=== PATIENT | female | born 1975 | race African-American/Black ===

== ENCOUNTER 2023-08-09 15:44 | Outpatient (CLI) | payer MEDICARE, SELFPAY ==
[2023-08-09 16:13] LABS: Basophils Absolute Auto 0.1 K/mm3 (0.0-0.1); Basophils Percent Auto 0.9 % (0.2-1.2); Eosinophils Absolute Auto 0.2 K/mm3 (0-0.3); Hematocrit 25.1 % (37.0-47.0); Immature Granulocyte Absolute 0.02 K/mm3 (0.00-0.031); Immature Granulocyte Percent A 0.2 % (0-0.5); Lymphocytes Absolute Auto 2.86 K/mm3 (0.9-3.2); Lymphocytes Percent Auto 33.5 % (18.3-44.2); Mean Corpuscular HGB Conc 27.1 g/dl (32-36); Mean Corpuscular Hemoglobin 17.6 pg (26-34); Mean Corpuscular Volume 64.9 fl (80-100); Mean Platelet Volume 8.2 fl (7.4-10.4); Monocytes Absolute Auto 0.6 K/mm3 (0.1-0.6); Monocytes Percent Auto 7.2 % (2.6-8.5); Neutrophils Absolute Auto 4.8 K/mm3 (1.3-6.7); Neutrophils Percent Auto 56.2 % (45.5-73.1); Nucleated Red Blood Cells Perc 0.2 % (0.0-0.2); Platelet Count Result 861 k/mm3 (150-375); Red Blood Count 3.87 M/mm3 (4.2-5.4); Red Cell Distribution Width 30.2 % (11.5-14.5); White Blood Count 8.5 K/mm3 (4.5-10.0)
[2023-08-09 16:14] LABS: Hemoglobin 6.8 g/dL (12.0-15.0)
[2023-08-09 16:31] LABS: Platelet Estimate Increased (Adequate)
[2023-08-09 16:32] LABS: Anisocytosis 1+ (NORMAL); Hypochromasia 2+ (NORMAL); Ovalocytes 2+ (NORMAL); Poikilocytosis 2+ (NORMAL); Schistocytes None Seen (NORMAL)
[2023-08-09 16:48] LABS: Iron 21 ug/dL (37-170)
[2023-08-09 16:50] LABS: Alanine Aminotransferase 21 U/L (6-35); Alkaline Phosphatase 77 U/L (38-126); Anion Gap 3 mmol/L (8-16); Aspartate Amino Transferase 35 U/L (14-36); Bilirubin,Total 0.4 mg/dL (0.2-1.3); Blood Urea Nitrogen 8 mg/dL (7-17); Calcium 8.8 mg/dL (8.4-10.2); Carbon Dioxide 30 mmol/L (22-30); Chloride 106 mmol/L (98-107); Estimated Glomerular Filt Rate > 60; Glucose 122 mg/dL (65-110); Potassium 3.7 mmol/L (3.4-5.0); Sodium 139 mmol/L (137-145)
[2023-08-09 16:58] LABS: Percent Iron Saturation 4 % (20-50)
[2023-08-09 17:24] LABS: Ferritin 4.47 ng/mL (6.24-137)
[2023-08-09 17:56] LABS: Folic Acid 5.9 ng/mL (2.76->20)
[2023-08-13 10:20] LABS: Methylmalonic Acid 185 nmol/L (87-318)
== END 2023-08-09 15:45 | disposition home or self-care (01) ==
LOC: ANHLAB 15:57
PROVIDERS: Visit Provider Internal Medicine Hematology & Oncology
DX: D64.9 Anemia, unspecified (principal)
CPT/HCPCS: 36415; 80053; 82607; 82728; 82746; 83540; 83550; 83921; 85025

== ENCOUNTER 2023-08-10 07:42 | Outpatient (RCR) | payer MEDICARE, SELFPAY ==
[2023-08-10] VITALS (10 sets, daily range): BP systolic 113–141; BP diastolic 65–85; PULSE 77–93; RESP 14–24; TEMP 36.6–37.3; O2SAT 97–99
[2023-08-10] MEDS: ACETAMINOPHEN 325 MG TABLET 650 MG PO (09:19)
[2023-08-10] MEDS: diphenhydrAMINE HCl CAP 25 MG CAPSULE PO (09:20)
[2023-08-10] MEDS: SODIUM CHLORIDE 0.9% IV 250 ML 30 ML IV CONT (09:20)
--- NOTE | 2023-08-10 12:08 | PC.NURSE ---
this rn called into room. pt reported slight pressure to chest that worsened with deep breathing and sob. vitals taken stable at this time. lungs clear at this time. rate of prbc infusion decreased from 125 to 100. pt observed for 10 min pt ambulated to bathroom with no incidence but continued to c/o of the slight pressure and pain to quan arms. pt requested to decrease rate down more rate decreased to 90ml/hr. pt reported noted improvement after 5 min on slower rate. infusion continued at rate of 90ml/hr. vss at this time. will monitor pt.
[2023-08-10] MEDS: FUROSEMIDE INJ 40 MG/4 ML VIAL 20 MG IV PUSH (12:59)
== END 2023-11-08 23:59 | disposition home or self-care (01) ==
LOC: ANHCPCTRAN 07:42
PROVIDERS: Visit Provider Internal Medicine Hematology & Oncology
DX: D64.9 Anemia, unspecified (principal)
CPT/HCPCS: 36415; 36430; 86850; 86900; 86901; 86923; 96374; A9270; J1940; J7050; P9016

== ENCOUNTER 2023-08-22 13:43 | Outpatient (CLI) | payer MEDICARE, SELFPAY ==
[2023-08-22 14:12] LABS: Basophils Absolute Auto 0.1 K/mm3 (0.0-0.1); Basophils Percent Auto 0.8 % (0.2-1.2); Eosinophils Absolute Auto 0.3 K/mm3 (0-0.3); Eosinophils Percent Auto 4.5 % (0-4.4); Hematocrit 31.8 % (37.0-47.0); Hemoglobin 9.3 g/dL (12.0-15.0); Immature Granulocyte Absolute 0.01 K/mm3 (0.00-0.031); Immature Granulocyte Percent A 0.2 % (0-0.5); Immature Platelet Fraction Pct 7.9 % (0.9-11.2); Lymphocytes Absolute Auto 2.57 K/mm3 (0.9-3.2); Lymphocytes Percent Auto 39.5 % (18.3-44.2); Mean Corpuscular HGB Conc 29.2 g/dl (32-36); Mean Corpuscular Volume 68.2 fl (80-100); Monocytes Absolute Auto 0.4 K/mm3 (0.1-0.6); Monocytes Percent Auto 5.5 % (2.6-8.5); Neutrophils Absolute Auto 3.2 K/mm3 (1.3-6.7); Neutrophils Percent Auto 49.5 % (45.5-73.1); Red Blood Count 4.66 M/mm3 (4.2-5.4); White Blood Count 6.5 K/mm3 (4.5-10.0)
[2023-08-22 14:16] LABS: Platelet Count Result 44 k/mm3 (150-375)
[2023-08-22 14:20] LABS: Hypochromasia 2+ (NORMAL); Platelet Estimate Decreased (Adequate); Schistocytes None Seen (NORMAL)
[2023-08-22 14:21] LABS: Anisocytosis 1+ (NORMAL); Microcytosis 1+ (NORMAL); Ovalocytes 1+ (NORMAL); Poikilocytosis 1+ (NORMAL)
[2023-08-22 16:44] LABS: Iron 86 ug/dL (37-170)
[2023-08-22 16:49] LABS: Alanine Aminotransferase 27 U/L (6-35); Albumin Level 4.3 g/dL (3.5-5.1); Alkaline Phosphatase 78 U/L (38-126); Anion Gap 3 mmol/L (8-16); Aspartate Amino Transferase 35 U/L (14-36); Bilirubin,Total 0.5 mg/dL (0.2-1.3); Blood Urea Nitrogen 5 mg/dL (7-17); Calcium 9.2 mg/dL (8.4-10.2); Carbon Dioxide 29 mmol/L (22-30); Chloride 103 mmol/L (98-107); Estimated Glomerular Filt Rate > 60; Glucose 174 mg/dL (65-110); Potassium 3.2 mmol/L (3.4-5.0); Sodium 135 mmol/L (137-145)
[2023-08-22 16:53] LABS: Percent Iron Saturation 18 % (20-50)
[2023-08-22 17:54] LABS: Folic Acid 10.5 ng/mL (2.76->20)
[2023-08-26 07:08] LABS: Methylmalonic Acid 118 nmol/L (87-318)
== END 2023-08-22 13:44 | disposition home or self-care (01) ==
LOC: ANHLAB 13:45
PROVIDERS: Visit Provider Internal Medicine Hematology & Oncology
DX: D64.9 Anemia, unspecified (principal)
CPT/HCPCS: 36415; 80053; 82607; 82728; 82746; 83540; 83550; 83921; 85025; 85055

== ENCOUNTER 2023-08-28 15:32 | Outpatient (CLI) | payer MEDICARE, SELFPAY ==
--- NOTE | ~2023-08-28 | CT_ITS ---
EXAMINATION: CTA chest DATE: 08/28/2023 16:29 INDICATION: Chest pain TECHNIQUE: Computed tomography (CT) of the chest was performed without and subsequently with 100 CC O mnipaque 350 intravenous contrast. Automated exposure control and iterative reconstruction technique were employed. Exam dose: 1859.71 mGy-cm total exam DLP. COMPARISON: None FINDINGS: Heterogeneous enlarged left lobe of thyroid gland, including an approximately 2 cm upper po le soft tissue mass. Consider elective thyroid ultrasound examination. No thoracic aortic aneurysm or dissection. Normal heart size. No pericardial or pleural effusion. No evidence of pulmonary embolism is detected. No hilar or mediastinal mass lesion or lymphadenopathy. There are a few areas of mild discoid atelectasis or scarring in the middle and right lower lobes and to a lesser extent left lower lobe, with minimal lower lobe dependent atelectasis, greater on the ri ght. No pulmonary consolidation or suspicious pulmonary mass lesion.. Normal morphology of the adrenal glands. Postoperative change of the stomach likely related to gastric bypass.. No suspicious osteolytic or osteoblastic lesions are noted. IMPRESSION: No thoracic aortic aneurysm or dissection or pulmonary embolism is detected Heterogeneous thyroid gland with one or more masses; consider atelectasis thyroid ultrasound examinat ion Reviewed, dictated and finalized at [facility]. Reviewed, dictated and finalized at location [facility]. IMPRESSION: No thoracic aortic aneurysm or dissection or pulmonary embolism is detected Heterogeneous thyroid gland with one or more masses; consider atelectasis thyro id ultrasound examination
== END 2023-08-28 15:33 | disposition home or self-care (01) ==
PROVIDERS: PCP Family Medicine; Visit Provider Internal Medicine Hematology & Oncology
DX: R07.9 Chest pain, unspecified (principal)
CPT/HCPCS: 71275; Q9967

== ENCOUNTER → 2023-10-17 13:03 | Outpatient (CLI) | payer MEDICARE, SELFPAY ==
--- NOTE | ~2023-10-17 | US_ITS ---
US thyroid INDICATION: Thyroid nodule TECHNIQUE: Real-time sonographic images of the thyroid gland were obtained. COMPARISON: No prior studies for comparison. FINDINGS: The right thyroid lobe measures 6.4 x 2.2 x 2.9 cm. The left thyroid lobe measures 6.1 x 2 .7 x 3.2 cm. In the left lobe there is a solid height wider than tall, smoothly marginated mass witho ut internal echogenic foci measuring 2.7 x 1.8 x 2.3 cm, TR 3. A second left thyroid mass measures 2 x 1.8 x 1.3 cm and is solid, hyperechoic, wider than tall without echogenic foci and smooth marginati on is, TR 3. IMPRESSION: 1. Enlarged thyroid gland with left thyroid masses, largest measuring 2.7 cm, TR3 3. Ultrasound-guided fine-needle aspiration biopsy recommended. Reviewed, dictated and finalized at location B. IOPULMONARY TECHNICIAN AND EEG TECH
== END ==
PROVIDERS: PCP Internal Medicine Hematology & Oncology; Visit Provider Internal Medicine Hematology & Oncology
DX: E04.1 Nontoxic single thyroid nodule (principal)
CPT/HCPCS: 76536

== ENCOUNTER 2023-11-29 11:20 | Outpatient (CLI) | payer MEDICARE, SELFPAY ==
[2023-11-29 12:02] LABS: Anion Gap 6 mmol/L (8-16); Blood Urea Nitrogen 7 mg/dL (7-17); Calcium 9.2 mg/dL (8.4-10.2); Carbon Dioxide 30 mmol/L (22-30); Chloride 103 mmol/L (98-107); Estimated Glomerular Filt Rate > 60; Glucose 96 mg/dL (65-110); Potassium 3.8 mmol/L (3.4-5.0); Sodium 139 mmol/L (137-145)
== END 2023-11-29 11:21 | disposition home or self-care (01) ==
PROVIDERS: Anesthesiology; PCP Family Medicine; Visit Provider Obstetrics & Gynecology
DX: Z01.818 Encounter for other preprocedural examination (principal); R73.03 Prediabetes
CPT/HCPCS: 36415; 80048

== ENCOUNTER 2023-12-03 02:03 | Day surgery (SDC) | payer MEDICARE, SELFPAY ==
[2023-11-23 14:10] VITALS: BMI 38.3
--- NOTE | 2023-11-23 14:16 | PC.NURSE ---
Report to the Outpatient Waiting Room, entrance under the green pavilion located off [facility], at time 8:30 on date 12/03/23. Planned Procedure Time: 10:30. Time changes happen often and if your time is changed the preop area will call you the afternoon before. - You and your visitor will be asked to self-screen and do not enter if you have any COVID symptoms. - A mask is optional within the hospital at this time. Patients may have clear liquids (water, carbonated beverages, clear teas, apple juice) until 3 hours prior to surgery (7:30) with a maximum of 20 ounces. - No food from midnight until time of surgery Take the following medications with a SIP of water the morning of surgery: BUSPIRONE, DULOXETINE, GABAPENTIN, LEVOTHYROXINE, HYDROXYZINE, CYCLOBENZAPRINE DO NOT STOP ANY OF YOUR OTHER PRESCRIPTION MEDICATIONS PRIOR TO SURGERY ?EXCEPT THE FOLLOWING Medications to discontinue per physician: VITAMINS/SUPPLEMENTS Date to take last dose: 11/29/[address] GRISSOM REGARDING ASPIRIN Please no make-up, nail [place], hairspray, perfume, deodorant, or body powder the day of surgery. No jewelry (including any body piercings) or valuables the day of surgery, leave them at home. Please take a shower or bath the night before, or the morning of, surgery with an antibacterial soap. Wear comfortable, loose fitting clothing. - Jewelry must be removed prior to entering the operating room. Rings and piercings that are not removed may be cut off. - The hospital will not accept responsibility for valuables. - Please leave all valuables, including medications, at home the day of surgery. If you are going home after surgery, a licensed truck driver rubbish collector must drive you home. - NO public transportation without another adult if you receive anesthesia. - We recommend that an adult stay with you for 24 hours following discharge. - We also recommend that you do not drive, make important decision, drink alcoholic beverages, or take any drugs that were not prescribed by your health care provider for at least 24 hours after your discharge time. Follow any additional instructions given to you from your surgeon. If you or anyone in your household have experienced Covid symptoms in the past week, please notify your surgeon or the nurse liaison at the phone number below for possible testing. Telephone instructions given to PT - MARGARITO OLGA and asked if any additional questions and then verbalized understanding. Patient advised to call surgeon office or pre surgery nurse liaison [phone] if any additional questions.
--- NOTE | 2023-12-03 06:38 | WPDHPUPDATE1 ---
History and Physical Update Update Date/Time: 12/03/23 06:38 EMB was benign tissue. History and Physical has been reviewed, including an updated exam of the patient. There are NO changes in the patient's condition. Risks, benefits, and alternatives have been discussed and questions answered. Patient agrees to proceed with hysteroscopy, D&C, with endometrial ablation.
[2023-12-03 09:11] LABS: Glucose Point of Care 86 mg/dl (65-105)
[2023-12-03 09:15] VITALS: BP 116/66; PULSE 64; RESP 14; TEMP 36.5; O2SAT 99
[2023-12-03] MEDS: LACTATED RINGERS 1,000 ML 30 ML IV CONT (09:15)
[2023-12-03] MEDS: ACETAMINOPHEN 500 MG TABLET 1000 MG PO (09:15)
--- NOTE | 2023-12-03 10:47 | W.PM.PROC2 ---
Procedure Note - Detailed Date of Procedure 12/03/23 Pre-op Diagnosis abnormal uterine bleeding Post-op Diagnosis Same Procedure Performed Hysteroscopy, D&C, Mirnerva endometrial ablation Surgeon Leisa Borrego MD Anesthesia MAC Findings Uterus sounded to 8; cervix 5. Normal uterus; polypoid appearing endometrium; bilateral tubal ostia visualized. Good hemostasis at end of case. Ablation performed without issue (first two devices were defective giving Error code 002). Description of Procedure Lynda was taken to the operating room where she was placed under sedation without complications. She was then prepped and draped in the usual sterile fashion in the dorsal lithotomy position with her legs in low Andry stirrups. A time-out was performed and no perioperative antibiotics were indicated. A bivalve speculum was placed within the vagina where the cervix was easily identified. The anterior lip of the cervix was grasped with a single-tooth tenaculum. The cervix was then serially dilated to allow for the hysteroscope. The hysteroscope was advanced into the uterine cavity with the above findings noted. A curettage was then performed until a good uterine cry was felt throughout the uterus. The Terri endometrial ablation device was then placed within the endometrial cavity; set to 5cm. The procedure was performed per chief accounting officer's instructions in the correct manner without complications (after the third device, the first two devices gave error code 002). After the second device failed, I did examine the uterine cavity one more time to verify no abnormalities and no perforations were noted. The third device performed the ablative procedure without issue. Good hemostasis was noted. All instruments were removed from the vagina. Sponge, lap, instrument, and needle counts were correct at the end of the procedure. Patient was awoken from anesthesia and taken to recovery with plans of same-day discharge home. Estimated Blood Loss 5 IV Fluids 700 (Fluid deficit: 70cc) Pathology Yes (endometrial curettings) Complications No immediate complications Condition Stable Disposition Same day [facility] Billing Surgery - Charge Forward: Surgery Billing
[2023-12-03 10:50] VITALS: BP 120/74; PULSE 88; RESP 14; O2SAT 93
[2023-12-03 11:20] VITALS: BP 121/61; PULSE 64; RESP 14; O2SAT 97
[2023-12-03 11:20] LABS: Glucose Point of Care 83 mg/dl (65-105)
[2023-12-03] MEDS: fentaNYL CITRATE INJ (*CRX) 100 MCG/2 ML VIAL 25 MCG IV PUSH (11:20)
[2023-12-03] MEDS: oxyCODONE HCL (*CRX) 5 MG TAB IR PO (11:27)
[2023-12-03 11:50] VITALS: BP 113/74; PULSE 62; RESP 16; O2SAT 98
[2023-12-03 12:20] VITALS: BP 111/69; PULSE 76; RESP 18; O2SAT 97
--- NOTE | 2023-12-03 12:30 | SUR.PHASEII ---
Patient signed discharge paperwork at 12:08, vitals are stable. Patient is requesting to have a couple pain pills to get her through the next few days. Awaiting a call back from provider.
--- NOTE | 2023-12-03 13:17 | SUR.PHASEII ---
1305 DR GRISSOM AWARE PATIENT REQUESTING A PAIN MEDICATION PRESCRIPTION FOR POST OP. DR GRISSOM STATES SHE WILL ORDER TRAMADOL ELECTRONICALLY. PATIENT AWARE AND OKAY WITH THIS AND READY TO BE DISCHARGED. 1310 DISCHARGED PER W/C.
== END 2023-12-03 13:10 | disposition home or self-care (01) ==
PROVIDERS: PCP Family Medicine; Visit Provider Obstetrics & Gynecology
PROC: 0U5B8ZZ Destruction of Endometrium, Via Natural or Artificial Opening Endoscopic (ICD-10-PCS; CPT 58563; principal; 2023-12-03 10:30)
DX: N93.9 Abnormal uterine and vaginal bleeding, unspecified (principal); D64.9 Anemia, unspecified; F41.9 Anxiety disorder, unspecified; F31.9 Bipolar disorder, unspecified; E53.8 Deficiency of other specified B group vitamins; E03.9 Hypothyroidism, unspecified; G89.29 Other chronic pain; M54.9 Dorsalgia, unspecified; M16.10 Unilateral primary osteoarthritis, unspecified hip; E06.3 Autoimmune thyroiditis; F12.90 Cannabis use, unspecified, uncomplicated; Z79.899 Other long term (current) drug therapy; Z79.82 Long term (current) use of aspirin; Z98.890 Other specified postprocedural states; Z86.711 Personal history of pulmonary embolism; Z82.49 Family history of ischemic heart disease and other diseases of the circulatory system; Z80.42 Family history of malignant neoplasm of prostate
CPT/HCPCS: 58563; 36415; 80048; 82948; 88305; A9270; J1100; J2250; J2405; J2704; J3010; J7120

== ENCOUNTER 2023-12-05 12:30 | Outpatient (CLI) | payer MEDICARE, SELFPAY ==
--- NOTE | ~2023-12-05 | US_ITS ---
EXAMINATION: US FNA w image guidance DATE: 12/05/2023 13:40 INDICATION: Thyroid nodule. TECHNIQUE: The procedure and its benefits and risks were discussed with the patient. Risks specifically discusse d included bleeding. The patient verbalized understanding of the risks and agreed to proceed. The nec k was prepped and draped in the usual sterile manner. 1% lidocaine was used for local anesthesia. 7 passes were made with a 25G needle into the lesion under ultrasound guidance. There were no immedia te complications. FINDINGS: Grayscale ultrasound images demonstrate needles advanced into a 2.9 cm nodule in left thyroid lobe fo r biopsy. IMPRESSION: 1. Ultrasound-guided fine needle aspiration of a left thyroid nodule. Reviewed, dictated and finalized at location A. LLECTUAL PROPERTY LAWYER
== END 2023-12-05 12:31 | disposition home or self-care (01) ==
PROVIDERS: PCP Family Medicine; Visit Provider Internal Medicine Hematology & Oncology
DX: E04.1 Nontoxic single thyroid nodule (principal)
CPT/HCPCS: 10005; 88172; 88173; 88305